=== PATIENT | male | born 1960 | race Caucasian/White ===

== ENCOUNTER → 2018-09-29 | Outpatient (CLI) | payer BC ==
[~2018-09-29] MED LIST: MEDROLDOSEPACK PO; PAXIL CR37.5 MG; PRILOSEC40 MG; ULTRAM 50MG TAB50 MG PO
== END ==
LOC: M.ULTRA 13:37
DX: M79.661 Pain in right lower leg (principal); M79.89 Other specified soft tissue disorders

== ENCOUNTER 2020-08-03 17:31 | Emergency (ER) | payer OTHER ==
[~2020-08-03] VITALS: Ht 182.9 cm; Wt 102.1 kg
[2020-08-03] MEDS ORDERED: KEFLEX500 M1 PO (18:08)
[2020-08-03 18:56] VITALS: BP 114/67
== END 2020-08-03 18:57 | disposition home or self-care (01) ==
LOC: M.ERS 17:31
DX: S61.411A Laceration without foreign body of right hand, initial encounter (principal); I10 Essential (primary) hypertension; J44.9 Chronic obstructive pulmonary disease, unspecified; E78.00 Pure hypercholesterolemia, unspecified; F17.210 Nicotine dependence, cigarettes, uncomplicated; Z79.899 Other long term (current) drug therapy; W18.39XA Other fall on same level, initial encounter; Y93.89 Activity, other specified; Y92.89 Other specified places as the place of occurrence of the external cause; Y99.8 Other external cause status